=== PATIENT | female | born 1990 | race Caucasian/White ===

== ENCOUNTER 2016-12-24 12:42 | Emergency (ER) | payer OTHER ==
[~2016-12-24] VITALS: Ht 160 cm; Wt 72.6 kg
[2016-12-24] MEDS ORDERED: PRENTAB75 PO (13:02)
[2016-12-24 13:15] VITALS: PULSE 107
[2016-12-24 13:20] VITALS: PULSE 127
--- NOTE | 2016-12-24 13:21 | PD ---
HPI Chief Complaint bleeding Date Seen: Dec 24, 2016 Time Seen: 13:15 Travel History International Travel<30 Days: No Contact w/Intl Traveler<30Days: No Known Affected Area: No History of Present Illness HPI PT is a 26 y/o with IUP at 36.3 wks who presents for eval of vag bleeding. Pt states she was seen in office this am for PRISCILLA visit and had cervical exam ( 2-3 cm in office per pt). When she went to restroom about an hour ago, she noted bright red blood on tissue. No blood in underwear per pt. Pt states she is feel irregular mild contractions. denies LOF. +FM Para: 1 : 2 History Past Medical History Medical History: Denies Significant Hx Obstetric History Obstetric History 2010 FTSVD, no complications Past Surgical History Surgical History: No Previous Surgery Family History Family History: Negative Social History Alcohol Use: No Tobacco Use: No Substance Abuse: No Allergies-Medications (Allergen,Severity, Reaction): Coded Allergies: No Known Allergies (Unverified , 12/24/16) Home Meds Reported Medications [] No Conflict Check Po 12/24/16 Review of Systems General / Constitutional: No: Fever, Weight Gain, Weight Loss, Chills, Other Eyes: No: Diploplia, Blurred Vision, Visual changes, Pain, Photophobia, Other HENT: No: Headaches, Vertigo, Dental Difficulties, Lightheadedness, Other Cardiovascular: No: Irregular Rhythm, Chest Pain or Discomfort, Palpitations, Tachycardia, Syncope, Varicosities, Edema, Cyanosis, Other Respiratory: No: Cough, Short of Breath, Wheezing, Other Gastrointestinal: No: Nausea, Vomiting, Diarrhea, Abdominal Pain, Hematemesis, Hematochezia, Constipation, Changes in Bowel Habits, Indigestion, Loss of Appetite, Other Genitourinary: Vaginal Bleeding, No: Urgency, Frequency, Dysuria, Nocturia, Hematuria, Decreased Urinary Output, Oliguria, Hesitancy, Dribbling, Incontinence, Pelvic Pain, Dyspareunia, Discharge, Menorrhagia, Other Musculoskeletal: No: Limited ROM, Weakness, Cramping, Edema, Pain, Other Skin: No Rash, No Itching, No Dryness, No Lumps, No Change in Pigmentation, No Change in Nails, No Alopecia, No Lesions, No Breast Lumps, No Breast Tenderness , No Breast Swelling, No Other Neurologic: No: Weakness, Dizziness, Syncope, Focal Abnormalities, Coordination Problem, Headache, Slurred Speech, Seizures, Other Psychiatric: No: Anxiety, Depression, Suicidal Ideations, Disorder of Thought, Mood Disorder, Substance Abuse, Homicidal Ideation, Other Endocrine: No: Heat Intolerance, Cold Intolerance, Polydipsia, Polyuria, Other Hematologic/Lymphatic: No Easy Bruising, No Lymph Node Enlargement, No Other Physical Exam 130/87, 118, 98.9 Narrative GENERAL: Well-nourished, well-developed patient. SKIN: Warm and dry. HEAD: Normocephalic and atraumatic. EYES: No scleral icterus. No injection or drainage. ENT: No nasal drainage noted. Mucous membranes pink. Airway patent. NECK: Supple, trachea midline. No JVD. CARDIOVASCULAR: Regular rate and rhythm without murmurs, gallops, or rubs. RESPIRATORY: Breath sounds equal bilaterally. No accessory muscle use. ABDOMEN/GI: Abdomen soft, non-tender, bowel sounds present, no rebound, no guarding Gravid GENITOURINARY: External Genitalia: intact and normal in appearance BUS glands: [wnl] Cervix: small amount of brown blood and mucous around cervix Dilatation: 2-3 Effacement: 50 Station: -3 Presentation: [facility] Membranes: intact Uterine Contractions: irregular FHT's: Category: 1 Baseline: 140s Reactive: yes Variability: mod Decels: no EXTREMITIES: No cyanosis or edema. BACK: Nontender without obvious deformity. No CVA tenderness. NEUROLOGICAL: Awake and alert. Motor and sensory grossly within normal limits. Five out of 5 muscle strength in all muscle groups. Normal speech. Data Data Vital Signs Reviewed: Yes MDM Narrative Course / MDM 26 y/o with IUP at 36.3 wks with spotting after cervical exam this am. --no evidence of active labor --labor s/sx reviewed --cat 1 tracing --C reviewed --keep OB appt Diagnosis Diagnosis: Primary Impression: Spotting affecting in third trimester Additional Impression: 36 weeks gestation of Condition: Stable Patient Instructions: General Instructions, Early Labor Signs (ED), Movement (ED) Germán Villarreal MD Dec 24, 2016 13:21
[2016-12-24 13:25] VITALS: PULSE 125
== END 2016-12-24 13:44 | disposition home or self-care (01) ==
LOC: HOBED 12:42
DX: O46.93 Antepartum hemorrhage, unspecified, third trimester (principal); Z3A.36 36 weeks gestation of pregnancy
CPT/HCPCS: 99281

== ENCOUNTER 2017-01-06 23:29 | Inpatient (IN) | payer OTHER ==
[~2017-01-06 23:29] MED LIST: PRENTAB75 PO
[2017-01-07] VITALS (7 sets, daily range): BP systolic 104–127; BP diastolic 70–80; PULSE 57–96; RESP 16–18; TEMP 97.6–98.5; O2SAT 96
--- NOTE | 2017-01-07 00:12 | PD ---
HPI Chief Complaint contractions Date Seen: Jan 07, 2017 Time Seen: 00:07 Travel History International Travel<30 Days: No Contact w/Intl Traveler<30Days: No Known Affected Area: No History of Present Illness HPI 26yo at 10c9ioin c/o contractions since 10pm. GBS negative. Denies vag bleeding. Good movement. H/o rapid labor in past. Para: 1 : 2 History Past Medical History Medical History: Denies Significant Hx Obstetric History Obstetric History x 1 Past Surgical History Surgical History: No Previous Surgery Family History Family History: Negative Social History Alcohol Use: No Tobacco Use: No Substance Abuse: No Allergies-Medications (Allergen,Severity, Reaction): Coded Allergies: No Known Allergies (Unverified , 12/24/16) Home Meds Reported Medications [] No Conflict Check Po 12/24/16 Review of Systems Except as stated in HPI: all other systems reviewed are Neg Physical Exam Narrative GENERAL: Well-nourished, well-developed patient. SKIN: Warm and dry. HEAD: Normocephalic and atraumatic. EYES: No scleral icterus. No injection or drainage. ENT: No nasal drainage noted. Mucous membranes pink. Airway patent. NECK: Supple, trachea midline. No JVD. CARDIOVASCULAR: Regular rate and rhythm without murmurs, gallops, or rubs. RESPIRATORY: Breath sounds equal bilaterally. No accessory muscle use. ABDOMEN/GI: Abdomen soft, non-tender, bowel sounds present, no rebound, no guarding Gravid to [38-] weeks size Fundal Height: [-] GENITOURINARY: External Genitalia: intact and normal in appearance BUS glands: [-nl] Cervix: [-ant] Dilatation: [8-] Effacement: [90-] Station: [0-] Presentation: [-vtx] Membranes: [intact] Uterine Contractions: [q5] FHT's: Category: [-1] Baseline: [-145] Reactive: [-mod] Variability: [-mod] Decels: [absent-] EXTREMITIES: No cyanosis or edema. BACK: Nontender without obvious deformity. No CVA tenderness. NEUROLOGICAL: Awake and alert. Motor and sensory grossly within normal limits. Five out of 5 muscle strength in all muscle groups. Normal speech. Data Data Vital Signs Reviewed: Yes Orders Ob (2e) Additional Admit Info (01/07/17 00:04) [facility] Medical Record Reviewed: Yes Plan 26yo at 38w3d here in active labor GBS negative Admit to labor Diagnosis Diagnosis: Primary Impression: 38 weeks gestation of Additional Impressions: Rapid first stage of labor H/O rapid labor Disposition: 01 DISCHARGE HOME Aleisha Cosby MD Jan 07, 2017 00:11
[2017-01-07] MEDS ORDERED: LACTATED RINGER'S 1000 ML INJ 1,000 ML IV PRN (00:14)
[2017-01-07] MEDS ORDERED: LACTATED RINGER'S 1000 ML INJ 1,000 ML IV SCH (00:14)
[2017-01-07] MEDS ORDERED: CITRIC ACID-SODIUM CITRATE LIQ 30 ML UDC PO SCH (00:15)
[2017-01-07] MEDS ORDERED: LIDOCAINE HCL 1% 50 ML VIAL INFIL PRN (00:15)
[2017-01-07] MEDS ORDERED: SODIUM CHLORID 0.9% 500 ML INJ 500 ML IV PRN (00:15)
[2017-01-07] MEDS ORDERED: MINERAL OIL 10 ML VIAL TOPICAL PRN (00:15)
[2017-01-07] MEDS ORDERED: LIDOCAINE HCL 1% 50 ML VIAL I-DERMAL PRN (00:15)
[2017-01-07] MEDS ORDERED: OXYTOCIN 30 UNITS-500ML PREMIX 500 ML IV ONE (00:15)
[2017-01-07] MEDS ORDERED: SODIUM CHLOR 0.9% 1000 ML INJ 1,000 ML IV PRN (00:34)
--- NOTE | 2017-01-07 01:02 | PD.OB.DELI ---
Delivery Date: Jan 07, 2017 Anesthesia: None Episiotomy: None Vaginal Delivery: Normal, Spontaneous Presentation: Occiput anterior, Vertex Nuchal Cord: None Delayed cord clamping (45 sec): Yes Infant: Female One Minute : 9 Five Minute : 9 Weight: 3200 Placenta: Spontaneous delivery, Intact, 3 vessel cord Laceration: No lacerations (EBL 200cc) Aleisha Cosby MD Jan 07, 2017 01:02
[2017-01-07 01:05] LABS: AUTOMATED NEUTROPHIL # 10.6 TH/MM3 (1.8-7.7); BASOPHIL % 0.1 % (0.0-2.0); EOSINOPHIL # 0.1 TH/MM3 (0-0.4); EOSINOPHIL % 0.5 % (0.0-4.0); HEMATOCRIT 33.9 % (35.0-46.0); HEMO FLAGS DIFF FINAL; LYMPHOCYTE # 2.5 TH/MM3 (1.0-4.8); MEAN CELL VOLUME 83.5 FL (80.0-100.0); MEAN CORPUSCULAR HEMOGLOBIN 28.8 PG (27.0-34.0); MEAN CORPUSCULAR HGB CONC 34.5 % (32.0-36.0); MONO % 5.8 % (0.0-8.0); NEUT % 75.6 % (16.0-70.0); PLATELET COUNT 287 TH/MM3 (150-450); RED BLOOD COUNT 4.06 MIL/MM3 (4.00-5.30); RED CELL DISTRIBUTION WIDTH 13.4 % (11.6-17.2)
[2017-01-07] MEDS ORDERED: oxyCODONE/ACETAMINOPHEN 5 MG/325 MG TAB PO PRN ×2 (01:15)
[2017-01-07] MEDS ORDERED: SODIUM CHLORIDE 0.9% FLUSH 10 ML FLUSH IV FLUSH PRN (01:15)
[2017-01-07] MEDS ORDERED: ACETAMINOPHEN 325 MG TAB PO PRN (01:15)
[2017-01-07] MEDS: IBUPROFEN 600 MG TAB PO PRN ×2 (01:15→12:07)
[2017-01-07] MEDS ORDERED: ALUMINUM/MAGNESIUM/SIMETH 30 ML CUP PO PRN (01:15)
[2017-01-07] MEDS ORDERED: ZOLPIDEM TARTRATE 5 MG TAB PO PRN (01:15)
[2017-01-07] MEDS ORDERED: BENZOCAINE 20% TOPICAL SPRAY 60 ML CAN TOPICAL PRN (01:15)
[2017-01-07] MEDS ORDERED: ONDANSETRON ODT 4 MG TAB PO PRN (01:15)
[2017-01-07] MEDS ORDERED: WITCH HAZEL 50%/GLYCERIN 12.5% 40 PAD JAR TOPICAL PRN (01:15)
[2017-01-07] MEDS: DOCUSATE SODIUM 50 MG/SENNA 8.6 MG TAB PO PRN (02:48)
[2017-01-07] MEDS ORDERED: SODIUM CHLORIDE 0.9% FLUSH 10 ML FLUSH IV FLUSH SCH (09:00)
[2017-01-07] MEDS ORDERED: MEASLES, MUMPS, RUBELLA VACCINE 0.5 ML VIAL SQ ONE (16:00)
[2017-01-07] MEDS ORDERED: DIPHTH/TETANUS/ACEL PERTUSSIS (BOOSTER) 0.5 ML VIAL/PFS IM ONE (16:00)
[2017-01-08] MEDS: IBUPROFEN 600 MG TAB PO PRN (05:44)
[2017-01-08] MEDS: DOCUSATE SODIUM 50 MG/SENNA 8.6 MG TAB PO PRN (05:44)
[2017-01-08 08:25] VITALS: BP 125/82; PULSE 83; RESP 18; TEMP 98.3
--- NOTE | 2017-01-08 11:17 | HHI.OB ---
Subjective Post Day: 2 Remarks Doing well ready for discharge no concerns Objective Vitals/I&O Vital Signs Date Time Temp Pulse Resp B/P Pulse Ox O2 Delivery O2 Flow Rate FiO2 01/08/17 08:25 98.3 83 18 125/82 01/07/17 19:20 98.3 96 18 116/80 96 Objective Remarks GENERAL: Well-nourished, well-developed patient. CARDIOVASCULAR: Regular rate and rhythm without murmurs, gallops, or rubs. RESPIRATORY: Breath sounds equal bilaterally. No accessory muscle use. ABDOMEN/GI: Abdomen soft, non-tender. Fundus: Firm, non-tender at umbilicus. GENITOURINARY: Light to moderate bleeding. EXTREMITIES: No cyanosis or edema, non-tender, without signs of DVT. Medications and IVs Current Medications Medications (Trade) Dose Ordered Sig/Dalila Route Start Time Stop Time Status Last Admin Lactated Ringer's 1,000 ml @ 125 mls/hr Q8H IV 01/07/17 00:14 01/07/17 00:15 Lactated Ringer's 1,000 ml @ 3,000 mls/hr Q20M PRN IV 01/07/17 00:14 Sodium Chloride 500 ml @ 1,000 mls/hr ONCE PRN IV 01/07/17 00:15 (NS 1000 ml Inj) 1,000 ml @ 100 mls/hr Q10H PRN IV 01/07/17 00:34 (fentaNYL INJ) 50 mcg Q1H PRN IV PUSH 01/07/17 00:15 (fentaNYL INJ) 100 mcg Q1H PRN IV PUSH 01/07/17 00:15 (Muri-Lube Oil) 10 ml UNSCH PRN TOPICAL 01/07/17 00:15 (NS Flush) 2 ml BID IV FLUSH 01/07/17 09:00 (NS Flush) 2 ml UNSCH PRN IV FLUSH 01/07/17 01:15 (Tylenol) 650 mg Q4H PRN PO 01/07/17 01:15 (Motrin) 600 mg Q6H PRN PO 01/07/17 01:15 01/08/17 05:44 (Percocet 5-325 Mg) 1 tab Q4H PRN PO 01/07/17 01:15 (Percocet 5-325 Mg) 2 tab Q4H PRN PO 01/07/17 01:15 (Americaine 20% Top Spr) 1 spray Q4H PRN TOPICAL 01/07/17 01:15 01/07/17 02:48 (Tucks Pads) 1 applic QID PRN TOPICAL 01/07/17 01:15 01/07/17 02:48 (Shahida-Colace) 2 tab Q12H PRN PO 01/07/17 01:15 01/08/17 05:44 (Ambien) 5 mg HS PRN PO 01/07/17 01:15 (Mag-Al Plus Susp Liq) 15 ml Q8H PRN PO 01/07/17 01:15 (Zofran Odt) 4 mg Q6H PRN PO 01/07/17 01:15 Assessment/Plan Assessment and Plan home today and RTO 6 weeks reviewed routine expectations Mohini Ervin MD Jan 08, 2017 11:17
[2017-01-08] MEDS ORDERED: IBUP-232 PO (11:18)
--- NOTE | 2017-01-08 11:19 | HHI.DCPOC ---
Discharge Care Plan Report Symptoms to Your Doctor -Temperature above 100.5 degrees -Redness, of incision or excessive or foul smelling drainage -Unusual pain or calf pain -Increased vaginal bleeding -Painful or difficulty urinating -Feelings of extreme sadness or anxiety after 2 weeks Goals to Promote Your Health * To prevent worsening of your condition and complications * To maintain your health at the optimal level Directions to Meet Your Goals Take your medications as prescribed Follow your dietary instruction Follow activity as directed Ensure plenty of rest for recovery Drink fluids for hydration Keep your appointments as scheduled Take your immunizations and boosters as scheduled If your symptoms worsen call your PCP, if no PCP go to Urgent Care Center or Emergency Room Smoking is Dangerous to Your Health. Avoid second hand smoke Call the 24-hour crisis hotline for domestic abuse at Mohini Ervin MD Jan 08, 2017 11:18
== END 2017-01-08 12:55 | disposition home or self-care (01) | DRG 775 ==
LOC: HOBED 23:29 → H2EB 01-07 00:04 → H1EA 01-07 02:07
PROVIDERS: ADMIT Obstetrics & Gynecology; ATTEND Obstetrics & Gynecology
PROC: 10E0XZZ Delivery of Products of Conception, External Approach (ICD-10-PCS; principal; 2017-01-07)
DX: O80 Encounter for full-term uncomplicated delivery (principal); Z37.0 Single live birth; Z3A.38 38 weeks gestation of pregnancy
CPT/HCPCS: 85025; 86900; 86901; J2590; J7120